=== PATIENT | female | born 1945 | race Caucasian/White ===

== ENCOUNTER 2019-04-22 07:30 | Observation (INO) ==
--- NOTE | 2019-04-16 17:29 | EKG Report ---
Test Performed on : 04/16/2019 5:26:49 PM Test Reason : PAT Blood Pressure : / mmHG Vent. Rate : 080 BPM Atrial Rate : 080 BPM P-R Int : 132 ms QRS Dur : 082 ms QT Int : 412 ms P-R-T Axes : 041 072 053 degrees QTc Int : 475 ms Sinus rhythm. with marked sinus arrhythmia. Nonspecific ST abnormality Abnormal ECG When compared with ECG of 12-APR-2015 11:59, No significant change was found Confirmed by Zion BARRON, Leo Grewal ([id number]) on 04/18/2019 7:01:15 PM
[2019-04-16 17:42] LABS: URINE SOURCE CLEAN CATCH
[2019-04-16 17:49] LABS: BASO# 0.03 X1000 (0.0-0.2); BASO% 0.6 % (0.0-0.8); EOS# 0.04 X1000 (0.0-0.7); EOS% 0.8 % (0.0-10.0); HEMATOCRIT 41.3 % (37.0-47.0); HEMOGLOBIN 13.3 g/dL (12.0-16.0); LYMPH% 31.5 % (20.5-51.1); MCH 29.6 PG (27-31); MCHC 32.2 g/dL (33-37); MONO# 0.36 X1000 (0.11-0.59); MONO% 7.1 % (1.7-9.3); MPV 9.3 FL (7.4-10.4); NEUT# 3.05 X1000 (1.4-6.5); PLT 220 X1000 (130-400); RBC 4.49 XMIL (4.2-5.4); RDW 13.2 % (11.5-14.5); WBC 5.08 X1000 (4.8-10.8)
[2019-04-16 17:55] LABS: BILIRUBIN URINE NEGATIVE (NEGATIVE); BLOOD URINE NEGATIVE (NEGATIVE); COLOR YELLOW; GLUCOSE URINE NEGATIVE (NEGATIVE); KETONE URINE NEGATIVE (NEGATIVE); LEUKOCYTES URINE SMALL (NEGATIVE); NITRITE URINE NEGATIVE (NEGATIVE); PH URINE 5.5; PROTEIN URINE NEGATIVE (NEGATIVE); SP GRAVITY URINE 1.015; TURBIDITY URINE CLEAR (CLEAR); UROBILINOGEN URINE NORMAL (NORMAL)
[2019-04-16 17:57] LABS: UR EPITHELIAL CELLS <10 /HPF (<10); URINE BACTERIA NEGATIVE /HPF; URINE RBC <10 /HPF (<10)
[2019-04-16 17:58] LABS: INR 1.01; PROTIME 13.4 Seconds (11.0-16.0)
[2019-04-16 17:59] LABS: HEMOGLOBIN A1C 5.7 % (4.8-6.0); PTT 27.5 Seconds (22.3-41.8)
[2019-04-16 18:01] LABS: CALCIUM 9.2 mg/dL (8.8-10.2); POTASSIUM 4.3 mmol/L (3.5-5.1)
[2019-04-22] MEDS ORDERED: REGLAN ONE (08:14)
[2019-04-22] MEDS ORDERED: PEPCID ONE (08:14)
[2019-04-22] MEDS ORDERED: COLACE ONE (08:14)
[2019-04-22] MEDS ORDERED: KEFZOL 1 GM/D5W 1 GM/50 ML IVPB ONE (08:15)
[2019-04-22] MEDS ORDERED: LR 1,000 ML ONE (08:15)
[2019-04-22] MEDS ORDERED: LYRICA ONE (08:15)
[2019-04-22] MEDS ORDERED: CELEBREX ONE (08:27)
[2019-04-22] MEDS ORDERED: VERSED ONE (08:27)
[2019-04-22] MEDS ORDERED: FENTANYL ONE (08:28)
[2019-04-22] MEDS ORDERED: DIPRIVAN 1% 500 MG/50 ML BOTTLE ONE (09:16)
[2019-04-22] MEDS ORDERED: CYKLOKAPRON 1,000 MG/NS 1,000 MG/100 ML IVPB ONE ×2 (09:23→09:24)
[2019-04-22] MEDS ORDERED: SODIUM CHLORIDE 0.9% ONE (09:23)
[2019-04-22] MEDS ORDERED: TORADOL ONE (09:23)
[2019-04-22] MEDS ORDERED: MARCAINE 0.25% PF ONE (09:23)
[2019-04-22] MEDS ORDERED: VANCOMYCIN ONE (09:23)
[2019-04-22] MEDS ORDERED: DURAMORPH ONE (09:23)
[2019-04-22] MEDS ORDERED: NEOSPORIN G.U. IRRIGANT ONE (09:24)
[2019-04-22] MEDS ORDERED: EXPAREL 1.3% ONE (09:24)
[2019-04-22 10:29] LABS: URINE SOURCE CATH
[2019-04-22 10:33] LABS: BILIRUBIN URINE NEGATIVE (NEGATIVE); BLOOD URINE NEGATIVE (NEGATIVE); COLOR STRAW; GLUCOSE URINE NEGATIVE (NEGATIVE); KETONE URINE NEGATIVE (NEGATIVE); LEUKOCYTES URINE NEGATIVE (NEGATIVE); NITRITE URINE NEGATIVE (NEGATIVE); PROTEIN URINE NEGATIVE (NEGATIVE); SP GRAVITY URINE 1.005; TURBIDITY URINE CLEAR (CLEAR); UR EPITHELIAL CELLS <10 /HPF (<10); URINE BACTERIA NEGATIVE /HPF; URINE RBC <10 /HPF (<10); URINE WBC <10 /HPF (<10); UROBILINOGEN URINE NORMAL (NORMAL)
[2019-04-22] MEDS ORDERED: PITRESSIN ONE (10:56)
[2019-04-22] MEDS ORDERED: STERILE WATER INJ. ONE (10:56)
[2019-04-22] MEDS ORDERED: NS 1,000 ML ONE (11:46)
--- NOTE | 2019-04-22 11:58 | Diag Imaging Result Doc PS360 ---
KNEE 1-2 VIEWS-RIGHT - 04/22/2019 INDICATION: rt tka TECHNIQUE: Two views COMPARISON: 09/10/2017 FINDINGS: There has been placement of a hinged total knee prosthesis. Alignment is anatomic. No hardware fracture or loosening. IMPRESSION: No complication. Electronically signed by Osvaldo Mckeon 04/22/2019 11:55 AM
[2019-04-22] MEDS ORDERED: ZOFRAN ODT PO PRN (12:30)
[2019-04-22] MEDS ORDERED: DILAUDID IV PRN ×2 (12:30)
[2019-04-22] MEDS: ZOFRAN IV PRN ×2 (13:37→17:27)
[2019-04-22] MEDS ORDERED: TRANSDERM-SCOP TD ONE (13:43)
[2019-04-22] MEDS: OXY IR PO PRN ×2 (14:17→17:28)
[2019-04-22] MEDS: NS 1,000 ML IV SCH (14:19)
[2019-04-22] MEDS: TYLENOL PO SCH (15:55)
[2019-04-22] MEDS: ULTRAM PO SCH (15:55)
--- NOTE | 2019-04-22 16:17 | OPERATIVE NOTE ---
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 PROCEDURE PERFORMED: Right total knee replacement. SURGEON: Jacqueline Perez MD. SUPERVISOR FLOOR [employer]SEMBLY: DEBRA Gallagher. Ms. Elena was necessary for proper retraction and manipulation during the case. ANESTHESIA: Spinal. COMPLICATION: None. PROCEDURE IN DETAIL: This is a 73-year-old female with degenerative valgus knee who presents for total knee replacement. Risks, benefits, no guarantees were discussed and she is willing to proceed. She was taken to the operating room and satisfactory anesthesia obtained. The right leg was prepped and draped in the usual sterile fashion. A time-out was taken to confirm operative site, procedure, and patient. The leg was wrapped with an Esmarch and tourniquet inflated to 300 mmHg. A midline incision was made over the front of the knee followed by a quadriceps tendon sparing arthrotomy. The patella was everted and resurfaced with freehand technique. The knee was flexed with the patella subluxed. An intramedullary hole made in the distal femur and distal femoral cutting block secured in 5 degrees of valgus. The distal femoral resection was made and the femur sized to a size 6 TRUE linkswearuy HereOrThereune revision femoral prosthesis. The 4 in 1 block was secured and the anterior, posterior, and chamfer cuts sequentially made. Any remaining osteophytes were debrided from the femur. A trial size 6 femur was then positioned and the notch cut for the posterior stabilized design. Any remaining osteophytes were debrided on the femur at this time. The knee was then flexed and a PCL retractor used to retract the femur and the tibial cutting block secured with extramedullary alignment. Tibial resection was made. The tibia was sized to a size 6 tibial tray. The intramedullary canal of the tibia was reamed up to a 16 reamer for a stemmed tibial implant. The proximal tibia was broached for ingrowth surface on the undersurface of the tibia as well. Reaming using the provided guide for the femoral implant was undertaken as well up to a 14 stem. The trial components were then assembled on the back table and the tibia and femoral implants inserted into the bones respectively. A 6 mm spacer trial poly was inserted with good range of motion and stability. The patella was sized to a 35 medialized dome patella with midline tracking. The lug holes were prepared for the patella and all trial implants removed. The permanent implants were assembled on the back table and torqued to specs. The bony surfaces were irrigated with pulsatile lavage. Cement with a gram of vancomycin was utilized to cement a size 6 revision tibial tray, a size 6 right posterior stabilized revision femoral implant with a stem and a 35 medialized dome patella. While the cement hardened the excess cement was removed with a Findlay elevator. The joint capsule was injected with Exparel and a Hemovac drain placed. Afterwards, a size 6, 6 mm rotating platform polyethylene insert posteriorly stabilized and inserted into the knee. Final range of motion was assessed from 0 to 120 degrees with midline patellar tracking. The arthrotomy was copiously irrigated with irrigant. It was then closed over the drain with #1 Vicryl in the arthrotomy, 2-0 Vicryl in the subcutaneous and a perennial skin closure. Sterile dressings were applied and tourniquet released with good return of capillary blood flow. No intraoperative complications were noted. Instrument count and sponge count was correct at the time of closure. cc: Dino Perez MD MTDD
--- NOTE | 2019-04-22 16:33 | ORTHOPAEDICS PROGRESS NOTE ---
DATE: 04/22/2019 POSTOPERATIVE NOTE: Ms. Jane is seen status post total knee replacement. At the present time she is awake and vital signs are stable. She is comfortable. The bandage is clean and dry. She appears to wiggle her toes up and down with good capillary refill. Postop x-rays look good. She is stable. We will plan on mobilizing her when she is ready. We will consider discharge home once she is mobilizing well with physical therapy. cc: Dino Perez MD
[2019-04-22] MEDS: KEFZOL 1 GM/D5W 1 GM/50 ML IVPB IV SCH (17:27)
[2019-04-22] MEDS ORDERED: PHENERGAN IV PRN (18:07)
[2019-04-22] MEDS ORDERED: SODIUM CHLORIDE 0.9% INJ PRN (18:07)
[2019-04-22] MEDS ORDERED: CELEBREX PO SCH (21:00)
[2019-04-22] MEDS ORDERED: ZOFRAN IV PRN (21:30)
[2019-04-23] MEDS: ADALAT CC PO SCH ×4 (01:22→11:52)
[2019-04-23] MEDS: PERIDEX MT SCH ×3 (01:23→21:30)
[2019-04-23] MEDS: CELEBREX PO SCH ×3 (01:23→21:31)
[2019-04-23] MEDS: TYLENOL PO SCH ×4 (01:24→16:56)
[2019-04-23] MEDS: NS 1,000 ML IV SCH ×3 (01:28→15:17)
[2019-04-23] MEDS: KEFZOL 1 GM/D5W 1 GM/50 ML IVPB IV SCH (01:28)
[2019-04-23] MEDS: OXY IR PO PRN ×5 (01:37→21:47)
[2019-04-23] MEDS: CATAPRES PO SCH (01:37)
[2019-04-23] MEDS: COLACE PO SCH ×3 (01:50→21:31)
[2019-04-23] MEDS: MYRBETRIQ E.R. PO SCH ×2 (01:51→21:32)
[2019-04-23] MEDS: ULTRAM PO SCH ×5 (01:52→21:00)
[2019-04-23] MEDS: TEMOVATE 0.05% CREAM TOP SCH ×2 (04:05→12:53)
[2019-04-23] MEDS: PRILOSEC PO SCH (07:03)
[2019-04-23] MEDS: SYNTHROID PO SCH (07:03)
[2019-04-23] MEDS: LINZESS PO SCH (07:03)
[2019-04-23 07:05] LABS: HEMATOCRIT 33.5 % (37.0-47.0); HEMOGLOBIN 10.7 g/dL (12.0-16.0)
[2019-04-23 07:28] LABS: AGAP 7; BUN 17 mg/dL (8-22); CHLORIDE 104 mmol/L (98-107); COSMO 278; CREATININE 0.9 mg/dL (0.5-0.9); ESTIMATED GFR > 60; GLUCOSE 114 mg/dL (70-104); SODIUM 138 mmol/L (136-145); TCO2 27 mmol/L (25-35)
[2019-04-23] MEDS ORDERED: DRAMAMINE PO PRN (07:50)
[2019-04-23] MEDS: PEPCID PO SCH (08:01)
[2019-04-23] MEDS: ASPIRIN PO SCH (08:01)
[2019-04-23] MEDS: BYSTOLIC PO SCH (08:02)
[2019-04-23] MEDS: METROCREAM TOP SCH (12:54)
--- NOTE | 2019-04-23 12:55 | ORTHOPAEDICS PROGRESS NOTE ---
DATE: 04/23/2019 SUBJECTIVE: Ms. Jane is seen status post total knee replacement. She is afebrile with stable vital signs. Incision is clean and dry. She appears to be motor and sensory intact. There are no signs of complications. We will plan on discontinuing her lines and drain and mobilizing her today. If she is doing well with therapy and mobilization, she can be discharged home today for outpatient followup. cc: Dino Perez MD
[2019-04-23] MEDS ORDERED: ANTIVERT PO PRN (12:57)
--- NOTE | 2019-04-23 19:55 | ORTHOPAEDICS PROGRESS NOTE ---
DATE: 04/23/2019 SUBJECTIVE DATA: Ms. Jane is seen postop day 1 of her right total knee arthroplasty. She reports she has had some nausea and vomiting this morning along with some dizziness. She reports that she was unable to walk much with physical therapy. She states she walked about 2 feet. OBJECTIVE DATA: There was good sensation in the right lower extremity. Incision is clean and dry. The bandages are dry. There are good pedal pulses. There is negative Homans sign. There is no pain with calf squeeze. There is good capillary refill in the toes. ASSESSMENT: Degenerative joint disease right knee with right total knee arthroplasty. PLAN: We plan to keep Ms. Jane overnight and hopefully get her out in the morning. We will see how she does with physical therapy later on. We will keep fluids going and nausea medicine on board. Dictated by DEBRA Keating for Dino Perez MD cc: DEBRA Keating MD
[2019-04-23] MEDS ORDERED: CALMOSEPTINE OINTMENT TOP PRN (21:35)
[2019-04-24] MEDS: TYLENOL PO SCH ×5 (00:18→21:23)
[2019-04-24] MEDS: TEMOVATE 0.05% CREAM TOP SCH ×3 (00:18→21:25)
[2019-04-24] MEDS: OXY IR PO PRN ×3 (02:53→11:10)
[2019-04-24] MEDS: ULTRAM PO SCH ×4 (03:22→23:16)
[2019-04-24] MEDS: CATAPRES PO SCH ×2 (04:50→21:23)
[2019-04-24] MEDS: ADALAT CC PO SCH ×3 (04:50→21:23)
[2019-04-24] MEDS: NS 1,000 ML IV SCH (04:51)
[2019-04-24] MEDS: PRILOSEC PO SCH (07:00)
[2019-04-24] MEDS: SYNTHROID PO SCH (07:00)
[2019-04-24] MEDS: LINZESS PO SCH (07:00)
[2019-04-24 07:27] LABS: HEMOGLOBIN 9.8 g/dL (12.0-16.0)
[2019-04-24] MEDS: CELEBREX PO SCH ×2 (08:19→21:23)
[2019-04-24] MEDS: ASPIRIN PO SCH (08:20)
[2019-04-24] MEDS: PEPCID PO SCH (08:20)
[2019-04-24] MEDS: COLACE PO SCH ×2 (08:20→21:23)
[2019-04-24] MEDS: BYSTOLIC PO SCH (08:21)
[2019-04-24] MEDS: PERIDEX MT SCH ×2 (08:24→21:23)
[2019-04-24] MEDS: METROCREAM TOP SCH (08:27)
[2019-04-24] MEDS ORDERED: REGLAN IV PRN (13:29)
--- NOTE | 2019-04-24 18:43 | ORTHOPAEDICS PROGRESS NOTE ---
DATE: 04/24/2019 Ms. Jane is seen status post TFN fixation of the hip. The incisions are all clean and dry. There is no active bleeding. She is stable orthopedically. She can be mobilized partial weightbearing. Franco can be removed in 10 days. We will follow up with her in 1 month for followup x-rays. She can be transferred to rehab facility when a bed is available. cc: Dino Perez MD
--- NOTE | 2019-04-24 18:46 | ORTHOPAEDICS PROGRESS NOTE ---
DATE: 04/24/2019 SUBJECTIVE: Ms. Jane is postop day 2 of a right total knee arthroplasty. She had excessive nausea and vomiting yesterday as well as dizziness when she stood up. She has not been able to mobilize well with physical therapy due to this. She states that she has only walked approximately 5 feet since having her surgery. She believes this is most likely due to her not having a bowel movement Sunday as she is diagnosed with irritable bowel syndrome with constipation. She is having frequent belching throughout our interaction. OBJECTIVE: Ms. Jane is lying in bed with her at bedside. Her surgical incision appears very well with no surrounding redness to suggest infection at this time. She has full sensation to her foot. She is able to wiggle her toes and has active plantar flexion and dorsiflexion of her right foot. Her calf is soft and Homans sign is negative. ASSESSMENT: 1. Status post right total knee arthroplasty due to degenerative disk disease. 2. Intractable nausea and vomiting. PLAN: Due to Ms. Jane continuing with uncontrollable nausea and vomiting, we will consult hospitalist. This is most likely due to the fact that she has not had a bowel movement since Sunday. I did discuss rehab placement with Ms. Jane, but at this time she states she wishes to go home as long as her nausea and vomiting can get under control. This plan was discussed with Dr. Perez at bedside. Dictated by DEBRA Magana for Dino Perez MD cc: Dino Perez MD
[2019-04-24] MEDS: MYRBETRIQ E.R. PO SCH (21:23)
[2019-04-25] MEDS: ULTRAM PO SCH ×2 (02:11→08:40)
[2019-04-25] MEDS: TYLENOL PO SCH ×2 (03:29→08:40)
--- NOTE | 2019-04-25 04:40 | CONSULTATION ---
DATE OF CONSULTATION: 04/24/2019 PRIMARY CARE PHYSICIAN: Dr. Sequeira. REASON FOR CONSULTATION: Dizziness and vertigo. PRESENT ILLNESS: The patient is a 73-year-old white female patient of Dr. Perez who had right knee arthroplasty on 04/22/2019. Her primary care physician is Dr. Sequeira. She has had intermittent vertigo worse over the past couple of days. She has been given Zofran with some relief. She has had occasional palpitations in the past, but no history of atrial fibrillation. There is history of hypertension. She has had a carotid ultrasound in the past, which was normal. She has had occasional nasal congestion, but no fever, and no sore throat. PAST MEDICAL HISTORY: Surgery includes appendectomy, hysterectomy. There is history of hypothyroidism, osteoporosis, and rheumatoid arthritis. PRESENT MEDICATIONS: Bystolic 5 mg 1 daily, clonidine 0.1 mg at bedtime, levothyroxine 75 mcg daily, Linzess 145 mcg daily, meloxicam 15 mg daily, Myrbetriq 50 mg daily, omeprazole 40 mg daily. REVIEW OF SYSTEMS: She had an EGD a few years ago. This revealed hiatal hernia. She has had occasional upset stomach and gas, but no recent diarrhea. She has had some vomiting while in the hospital, but no hematemesis. There is no history of melena. She has had no significant headaches, or neurologic findings either numbness or motion abnormalities. PHYSICAL EXAMINATION: Vital signs: Temperature 97.7 degrees, heart rate 64, respirations 20, blood pressure 124/64, O2 saturation 94% on room air. General: The patient is a well-developed well-nourished white female in no apparent distress. She states the nausea is better after being given some Raglan. She has both Phenergan and Zofran ordered for nausea. Also meclizine is ordered p.r.n. dizziness. It is noted that allergies include morphine. She initially was on Dilaudid which is discontinued. She is on Percocet for pain. Neck: Supple with no mass or lymphadenopathy. There is no carotid bruit. Heart: Regular in rate and rhythm with no murmur, rub or gallop. Lungs: Clear with no rales or rhonchi. Abdomen: Soft with no mass, tenderness or organomegaly. Extremities: Right knee dressing postop. Rectal and Genitalia: Deferred. IMPRESSION: Vertigo with nausea, morphine allergy, history of nausea post anesthesia usually resolving within 24 hours after surgery. PLAN: Reglan was added for nausea control p.r.n. Dr. Sequeira will see the patient tomorrow morning. There is a tentative plan for discharge tomorrow and if she is feeling better certainly this can be done. cc: MD Dino Mendes MD
[2019-04-25] MEDS: PRILOSEC PO SCH (06:12)
[2019-04-25] MEDS: LINZESS PO SCH (06:12)
[2019-04-25] MEDS: SYNTHROID PO SCH (06:12)
[2019-04-25 06:28] LABS: HEMATOCRIT 28.9 % (37.0-47.0); HEMOGLOBIN 9.2 g/dL (12.0-16.0)
[2019-04-25 07:17] VITALS: BP 110/54
[2019-04-25] MEDS: CELEBREX PO SCH (08:39)
[2019-04-25] MEDS: PERIDEX MT SCH (08:39)
[2019-04-25] MEDS: ASPIRIN PO SCH (08:39)
[2019-04-25] MEDS: COLACE PO SCH (08:39)
[2019-04-25] MEDS: BYSTOLIC PO SCH (08:40)
[2019-04-25] MEDS: ADALAT CC PO SCH (08:40)
[2019-04-25] MEDS: METROCREAM TOP SCH (08:41)
[2019-04-25] MEDS: TEMOVATE 0.05% CREAM TOP SCH (08:42)
--- NOTE | 2019-04-25 23:13 | DISCHARGE SUMMARY ---
ADMISSION DATE: 04/22/2019 DISCHARGE DATE: 04/25/2019 ADMITTING DIAGNOSIS: Degenerative joint disease, right knee. DISCHARGE DIAGNOSIS: Degenerative joint disease, right knee. PRINCIPLE PROCEDURE: Right total knee arthroplasty. PAST MEDICAL HISTORY: Includes high blood pressure, hypothyroidism, osteoporosis, rheumatoid arthritis. PAST SURGICAL HISTORY: Includes appendectomy, hysterectomy, right total knee arthroplasty. ALLERGIES: The patient is allergic to Bactrim, Relafen, phenylephrine, Levaquin, baclofen. HOSPITAL COURSE: The patient was taken to the operating room on 04/22/2019 where a right total knee arthroplasty was performed. She tolerated the procedure well. She was transferred to the recovery room and she did good there. She was transferred to regular surgical floor where DVT prophylaxis was initiated. Routine postoperative antibiotics were administered. Her drain was discontinued on day 2. On postoperative day 1, she only took 2 steps with physical therapy. She also developed some nausea and vomiting throughout the night. We kept her for another day and the patient tolerated walking with physical therapy better the next day and walked around the nursing station. She has been able to spontaneously void. She transitioned to oral pain medications. Her nausea has since been resolved. Her incisions remain clean, dry, and intact during hospital course. There is a negative Homans sign. There is good sensation on the right lower extremity. There are good pedal pulses. There is good capillary refill in the toes. She is felt ready to be discharged on 04/25/2019. DISPOSITION: She is going to be discharged home. DISCHARGE INSTRUCTIONS: She is to be discharged home with home therapy at this time. I will place her on doxycycline for infection prevention, as well as Reglan to help her nausea and vomiting. I have also given her aspirin 325 mg daily for DVT prophylaxis. Dictated by DEBRA Keating for Dino Perez MD cc: DEBRA Keating MD [facility]
[2019-08-26] MEDS ORDERED: PROLIA SUBQ SCH (09:00)
== END 2019-04-25 11:00 | disposition home health service (06) ==
LOC: OR 07:30 → 4N 07:30
PROVIDERS: ADMIT Orthopaedic Surgery Adult Reconstructive Orthopaedic Surgery; ATTEND Orthopaedic Surgery Adult Reconstructive Orthopaedic Surgery